=== PATIENT | male | born 1970 | race Caucasian/White ===

== ENCOUNTER 2024-06-26 19:00 | Emergency (ER) | payer OTHER, SELFPAY ==
[2024-06-26 19:01] VITALS: BMI 28.4
[2024-06-26 19:07] VITALS: BP 165/103
--- NOTE | 2024-06-26 20:55 | ED.GENMED ---
History of Present Illness
General
Chief Complaint: Breathing Problem
Source: patient
Time Seen by Provider: 06/26/24 20:28
History of Present Illness
History of Present Illness:
54-year-old male presents to the emergency room after being referred here from an urgent care. Patient went to the urgent care for sinus congestion, cough, fatigue. Patient noted that when he goes up a flight of steps he feels more short of breath
and fatigued than he would expect. No known fever. Patient denies any unexpected weight loss or weight gain. No night sweats. Patient went to the urgent care where an x-ray was performed. There was concern there could be a pneumothorax on the
chest x-ray prompting the referral to the emergency room.
Past History
Past History
ED Past Medical History: None
ED Past Surgical History: None
Social History
Tobacco: Non-smoker
Alcohol: None
Phy Exam
Physical Exam
Physical Exam:
General: Awake, Alert, Oriented X3. No acute distress.
Vitals: unremarkable
Head: Atraumatic
Eyes: Pupils equal, EOMI
Throat: Airway intact, no exudates
Neck: Trachea midline
Lungs: Clear and equal b/l
Heart: Regular rate, no murmurs
Neuro: Nonfocal
Skin: Warm, dry, no rash
Extremities: pulses equal b/l, no edema
Scores
Heart Failure Risk
Heart Failure Risk Score: Not Applicable
Course
Orders/Labs/Results
Orders:
Orders
06/26/24 19:11
CR Chest - 2 Views Urgent
Comment:
Reason For Exam: sob
06/26/24 20:50
Electrocardiogram (*1) Urgent
Reason for Study: Shortness of Breath
06/26/24 20:51
EKG- Treatment ONCE
06/26/24 21:06
Complete Blood Count/With Diff Urgent
Comprehensive Metabolic Panel Urgent
TSH Reflex To Free T4 Urgent
Troponin I Urgent
Abnormal Lab Results
06/26/24
21:06
WBC 4.7 L 10^3/uL
(4.8-10.8)
Absolute Monos (auto) 0.7 H 10^3/uL
(0.1-0.6)
Monocytes % 15.5 H %
(1.7-9.3)
BUN 27 H mg/dl
(9-20)
06/26/24 21:06
06/26/24 21:06
Vital Signs
Initial and Last Documented VS:
Initial Vital Signs
Temp Pulse Resp BP Pulse Ox
97.7 F 65 20 165/103 98
06/26/24 19:07 06/26/24 19:07 06/26/24 19:07 06/26/24 19:07 06/26/24 19:07
Last Documented Vital Signs
Temp Pulse Resp BP Pulse Ox
97.7 F 64 13 165/103 96
06/26/24 19:07 06/26/24 22:30 06/26/24 22:30 06/26/24 19:07 06/26/24 22:30
MDM/Problems Addressed
Differential Diagnosis Includes:
ptx, pneumonia, bronchitis
MDM/Problems Addressed:
CXR shows no acute disease. Afebrile here. Not hypoxic or any resp distress. Pt was prescribed abx by urgent care. Stable for discharge.
*Radiology
Radiology exam reviewed: preliminary read by ED provider (No acute findings on my review of the cxr)
*Pulse Oximetry
Patient hypoxic: no
*Critical Care Note
Total Time (30-74mins, 75-104mins- exclusive of procedures): Not Applicable
ED Attending Note
-
Portions of this chart may have been created with voice recognition software.� Occasional wrong word or��sound alike� substitutions may have occurred due to the inherent limitations of voice recognition software.
Discharge Plan
Departure
Patient Disposition: Home (Routine Discharge)
Date of Disposition: 06/26/24
Time of Disposition: 22:40
Patient with high blood pressure during this ER visit?: Yes
Condition: Good
Discharge Problem:
Sinusitis, acute
Instructions: Sinusitis, Adult ED, BLOOD PRESSURE
Referrals:
NONE,* [Active] -
Interventions
Interventions:
*Risk Screen - Suicide Last Done: 06/26/24 19:07
*General Assessment Last Done: 06/26/24 19:07
*Neglect/Abuse Screening Last Done: 06/26/24 19:07
ED- Fall Risk Assessment Last Done: 06/26/24 21:16
*ED COVID-19 Vaccine History Last Done: 06/26/24 23:00
*Nursing Disposition Last Done: 06/26/24 23:00
ED- Cardiac Assessment Last Done: 06/26/24 21:16
ED- Pulmonary Assessment Last Done: 06/26/24 21:16
Discharge Date and Time
Discharge Date/Time: 06/26/24 23:00
Print Language: FRENCH
[2024-06-26 21:34] LABS: % Basophils 1.3 % (0-2); % Eosinophils 3.4 % (0-6); % Immature Granulocytes 0.2 % (0-0.5); % Lymphocytes 36.1 % (20.5-51.1); % Monocytes 15.5 % (1.7-9.3); % Neutrophils 43.5 % (42.2-75.2); Absolute Basophils 0.1 10^3/uL (0-0.2); Absolute Eosinophils 0.2 10^3/uL (0-0.7); Absolute Lymphocytes 1.7 10^3/uL (1.2-3.4); Absolute Monocytes 0.7 10^3/uL (0.1-0.6); Hematocrit 42.1 % (39.0-52.0); Hemoglobin 14.6 g/dL (13.0-18.0); Mean Corp Hgb Conc. 34.7 g/dL (33.0-37.0); Mean Corpuscular Hgb 30.9 pg (27.0-31.0); Mean Corpuscular Volume 89.2 fL (80.0-94.0); Mean Platelet Volume 8.6 fL (7.4-10.4); Nucleated Red Blood Cells % 0 % (-); Platelet Count 201 10^3/uL (130-400); Red Blood Cell Count 4.72 10^6/uL (4.70-6.10); Red Cell Dist. Width 12.3 % (11.5-14.5); White Blood Cell Count 4.7 10^3/uL (4.8-10.8)
[2024-06-26 22:02] LABS: ALT (SGPT) 42 U/L (0-50); AST (SGOT) 39 U/L (17-59); Albumin 4.5 g/dl (3.5-5.0); Alkaline Phosphatase 58 U/L (38-126); Blood Urea Nitrogen 27 mg/dl (9-20); Calcium 9.5 mg/dl (8.4-10.2); Carbon Dioxide 25 mmol/L (22-30); Chloride 103 mmol/L (98-107); Estimated Creatinine Clearance 93 ml/min; Glucose 97 mg/dl (70-99); Potassium 4.2 mmol/L (3.5-5.1); Sodium 142 mmol/L (135-145); Total Bilirubin 0.4 mg/dl (0.2-1.3); Total Protein 6.7 g/dl (6.3-8.2); eGFR > 60.00
[2024-06-26 22:03] LABS: Troponin I < 0.012 ng/ml
[2024-06-26 22:41] LABS: TSH Reflex To Free T4 1.99 uIU/ml (0.47-4.68)
== END 2024-06-26 23:00 | disposition home or self-care (01) ==
LOC: EMR 19:00
PROVIDERS: EMERGENCY PHYSICIAN Emergency Medicine; FAMILY PHYSICIAN Family Medicine
DX: J01.90 Acute sinusitis, unspecified (principal)
CPT/HCPCS: 99285; 71046; 80053; 84443; 84484; 85025; 93005